=== PATIENT | female | born 1990 | race Caucasian/White ===

== ENCOUNTER 2017-05-14 11:46 | Emergency (ER) | payer MEDICAID ==
[~2017-05-14] VITALS: Ht 152.4 cm; Wt 56.7 kg
[2017-05-14] MEDS ORDERED: IBUPROFEN 600 MG TAB PO ONE ×2 (11:49→12:15)
[2017-05-14] MEDS ORDERED: ACETAMINOPHEN 500 MG TAB PO ONE (11:49)
[2017-05-14 11:59] VITALS: BP 127/83
[2017-05-14] MEDS ORDERED: ACETAMINOPHEN 325 MG TAB PO ONE (12:15)
[2017-05-14 13:05] LABS: Basophils # (auto) 0 uL; CONDITION Y; Eosinophils # (auto) 0.1 uL; Eosinophils % (auto) 0.6 % (0.0-7.0); Hematocrit 38.2 % (36.0-46.0); Lymphocytes # (auto) 1.3 uL; Lymphocytes % (auto) 9.6 % (10.0-50.0); Mean Corpuscular Hemoglobin 27.2 pg (28.0-32.0); Mean Platelet Volume 8.9 fL (7.4-10.4); Monocytes % (auto) 6.8 % (0.0-12.0); Neutrophils # (auto) 11.6 uL; Platelet Count (auto) 250 10^3/uL (140-450)
[2017-05-14 13:31] LABS: Albumin 3.3 g/dL (3.4-5.0); BUN/Creatinine Ratio 24.1; Bilirubin, Total 0.4 mg/dL (0.2-1.0); Calcium 8.4 mg/dL (8.5-10.1); Potassium 4.1 mmol/L (3.5-5.1); Total Protein 7.3 g/dL (6.4-8.2)
== END 2017-05-14 15:25 | disposition left against medical advice (07) ==
LOC: ER 11:46 → EDBD 11:46 → ER 15:25
DX: R50.9 Fever, unspecified (principal); Z53.21 Procedure and treatment not carried out due to patient leaving prior to being seen by health care provider
CPT/HCPCS: 36415; 80053; 85025

== ENCOUNTER 2022-10-28 12:13 | Emergency (ER) | payer MEDICAID ==
[~2022-10-28] VITALS: Ht 162.6 cm; Wt 63.0 kg
[2022-10-28 12:47] VITALS: BP 132/72
[2022-10-28 13:14] LABS: Urine Bacteria NONE SEEN /hpf (None Seen); Urine Blood Negative /uL (Negative); Urine Specific Gravity 1.025 (1.001-1.035); Urine WBC 1 /hpf (0 - 5)
[2022-10-28 13:16] LABS: Eosinophils # (auto) 0 10 ^3/uL (0-0.8); Hemoglobin 11.8 g/dL (12.2-16.2); Lymphocytes # (auto) 1.4 10 ^3/uL (0.4-5.4)
[2022-10-28 13:18] LABS: Basophils # (auto) 0 10 ^3/uL (0-0.2); Basophils % (auto) 0.7 % (0.0-2.0); Hematocrit 36.2 % (36.0-46.0); Lymphocytes % (auto) 28.8 % (10.0-50.0); Mean Corpuscular Hemoglobin 24.7 pg (28.0-32.0); Mean Corpuscular Hgb Conc. 32.5 g/dL (32.0-36.0); Mean Corpuscular Volume 76.1 fL (80.0-100.0); Monocytes # (auto) 0.4 10 ^3/uL (0-1.3); Monocytes % (auto) 7.2 % (0.0-12.0); Neutrophils % (auto) 62.3 % (37.0-80.0); Nucleated Red Blood Cells % 0.1 %; Red Blood Cells 4.76 10^6/uL (4.0-5.20); Red Cell Distribution Width 14.8 % (11.8-14.3); White Blood Cell 4.9 10^3/uL (4.4-10.8)
[2022-10-28 13:33] LABS: Albumin 3.4 g/dL (3.4-5.0); Anion Gap 4 (5-15); Blood Urea Nitrogen 23 mg/dL (7-18); Calcium 8.4 mg/dL (8.5-10.1); Carbon Dioxide 28 mmol/L (21-32); Chloride 106 mmol/L (98-107); Glucose 91 mg/dL (74-106); Sodium 138 mmol/L (136-145)
[2022-10-28 13:36] LABS: Alanine Aminotransferase 24 U/L (13-56); Aspartate Aminotransferase 17 U/L (15-37); BUN/Creatinine Ratio 35.9; Blood Alcohol < 3.0 mg/dL (0-5); GFR African American 140 mL/min; GFR Non-African American 116 mL/min
[2022-10-28 13:37] LABS: Acetaminophen < 2.0 ug/mL (10-30); Salicylate < 1.7 mg/dL (2.8-20.0)
[2022-10-28 13:38] LABS: Alkaline Phosphatase 81 U/L (45-117); Bilirubin, Total 0.2 mg/dL (0.2-1.0); Creatine Kinase IFCC 257 U/L (26-192); Total Protein 7.3 g/dL (6.4-8.2)
[2022-10-28 15:02] LABS: Alcohol, Urine < 3.0 mg/dL (0-10); Amphetamine Screen, Urine POSITIVE (NEGATIVE); Barbiturate Scree,Urine NEGATIVE (NEGATIVE); Benzodiazephine Screen, Urine NEGATIVE (NEGATIVE); Cocaine Screen, Urine NEGATIVE (NEGATIVE); Opiate Scree,Urine NEGATIVE (NEGATIVE); Phencyclidine Screen, Urine NEGATIVE (NEGATIVE)
[2022-10-28 15:13] LABS: Cannabinoid Screen, Urine NEGATIVE (NEGATIVE)
== END 2022-10-28 14:20 | disposition left against medical advice (07) ==
LOC: ER 12:13
DX: T40.411A Poisoning by fentanyl or fentanyl analogs, accidental (unintentional), initial encounter (principal); F15.10 Other stimulant abuse, uncomplicated; Z53.21 Procedure and treatment not carried out due to patient leaving prior to being seen by health care provider; Y92.89 Other specified places as the place of occurrence of the external cause
CPT/HCPCS: 36415; 80053; 80307; 80320; 80329; 81001; 81025; 82550; 85025; 93005

== ENCOUNTER 2024-04-13 17:03 | Inpatient (IN) | payer MEDICAID ==
[~2024-04-13] VITALS: Ht 152.4 cm; Wt 159.7 kg
[~2024-04-13 17:03] MED LIST: PREN-96 PO
[2024-04-13 19:07] LABS: Basophils # (auto) 0 10 ^3/uL (0-0.2); Basophils % (auto) 0.1 % (0.0-2.0); Eosinophils # (auto) 0 10 ^3/uL (0-0.8); Eosinophils % (auto) 0.1 % (0.0-7.0); Hematocrit 41.4 % (36.0-46.0); Lymphocytes # (auto) 1.2 10 ^3/uL (0.4-5.4); Lymphocytes % (auto) 11.9 % (10.0-50.0); Mean Corpuscular Hemoglobin 27.6 pg (28.0-32.0); Mean Corpuscular Hgb Conc. 33.8 g/dL (32.0-36.0); Mean Corpuscular Volume 81.5 fL (80.0-100.0); Monocytes % (auto) 10.5 % (0.0-12.0); Neutrophils # (auto) 7.6 10 ^3/uL (1.6-8.6); Neutrophils % (auto) 77.4 % (37.0-80.0); Nucleated Red Blood Cells % 0.1 %; Red Blood Cells 5.08 10^6/uL (4.0-5.20); Red Cell Distribution Width 14.8 % (11.8-14.3); White Blood Cell 9.8 10^3/uL (4.4-10.8)
[2024-04-13 19:27] LABS: Alanine Aminotransferase 81 U/L (7-40); Albumin 4.9 g/dL (3.2-4.8); Alkaline Phosphatase 93 U/L (46-116); Anion Gap 14 (5-15); Aspartate Aminotransferase 369 U/L (13-40); BUN/Creatinine Ratio 26.8 (10.0-20.0); Blood Urea Nitrogen 30 mg/dL (9-23); Calcium 8.9 mg/dL (8.7-10.4); Carbon Dioxide 20 mmol/L (20-30); Chloride 98 mmol/L (98-107); Glucose 94 mg/dL (74-106); Potassium 4.2 mmol/L (3.5-5.1); Sodium 132 mmol/L (136-145)
[2024-04-13 19:28] LABS: Bilirubin, Total 0.4 mg/dL (0.2-1.0); Total Protein 7.2 g/dL (5.7-8.2)
[2024-04-13 19:54] LABS: Platelet Estimate Decreased
[2024-04-13 19:55] LABS: Large Platelets FEW
[2024-04-14] VITALS (7 sets, daily range): BP systolic 103–112; BP diastolic 47–76; PULSE 61–83; RESP 14–22; TEMP 98–99.4; O2SAT 94–97
[2024-04-14] MEDS ORDERED: TEMAZEPAM 15 MG CAP PO PRN
[2024-04-14] MEDS ORDERED: ONDANSETRON HCL 4 MG/2 ML VIAL IV PRN
[2024-04-14] MEDS: ACETAMINOPHEN 325 MG TAB PO PRN (04:52)
[2024-04-14 06:49] LABS: Basophils # (auto) 0 10 ^3/uL (0-0.2); Basophils % (auto) 0.4 % (0.0-2.0); Eosinophils # (auto) 0.1 10 ^3/uL (0-0.8); Eosinophils % (auto) 1.1 % (0.0-7.0); Hematocrit 40.4 % (36.0-46.0); Hemoglobin 14.1 g/dL (12.2-16.2); Lymphocytes # (auto) 1.7 10 ^3/uL (0.4-5.4); Lymphocytes % (auto) 22.1 % (10.0-50.0); Mean Corpuscular Hemoglobin 28.2 pg (28.0-32.0); Mean Corpuscular Hgb Conc. 34.8 g/dL (32.0-36.0); Mean Corpuscular Volume 80.9 fL (80.0-100.0); Monocytes # (auto) 0.8 10 ^3/uL (0-1.3); Monocytes % (auto) 10.5 % (0.0-12.0); Neutrophils # (auto) 5.1 10 ^3/uL (1.6-8.6); Neutrophils % (auto) 65.9 % (37.0-80.0); Red Blood Cells 4.99 10^6/uL (4.0-5.20); Red Cell Distribution Width 14.5 % (11.8-14.3); White Blood Cell 7.8 10^3/uL (4.4-10.8)
[2024-04-14 06:52] LABS: Alanine Aminotransferase 133 U/L (7-40); Alkaline Phosphatase 88 U/L (46-116); Anion Gap 12 (5-15); BUN/Creatinine Ratio 18.8 (10.0-20.0); Blood Urea Nitrogen 18 mg/dL (9-23); Calcium 9.2 mg/dL (8.7-10.4); Carbon Dioxide 24 mmol/L (20-30); Chloride 100 mmol/L (98-107); Glucose 129 mg/dL (74-106); Potassium 3.7 mmol/L (3.5-5.1); Sodium 136 mmol/L (136-145)
[2024-04-14 06:53] LABS: Albumin 4.5 g/dL (3.2-4.8); Aspartate Aminotransferase 561 U/L (13-40); Bilirubin, Total 0.4 mg/dL (0.2-1.0); Total Protein 6.9 g/dL (5.7-8.2)
[2024-04-14 08:50] LABS: Hepatitis B Surface Antigen Negative (Negative)
[2024-04-14 09:11] LABS: Hepatitis B Core IgM Negative
[2024-04-14 09:12] LABS: Hepatitis C Antibody Negative (Negative)
[2024-04-15] VITALS (7 sets, daily range): BP systolic 102–116; BP diastolic 42–62; PULSE 54–65; RESP 12–22; TEMP 97.6–98.4; O2SAT 96–98
[2024-04-15 00:12] LABS: Urine Bacteria FEW /hpf (None Seen); Urine Blood Negative /uL (Negative); Urine Clarity Ex.Turbid (Clear); Urine Color Colorless (Yellow); Urine Protein, UAD TRACE (Negative); Urine Specific Gravity 1.023 (1.001-1.035); Urine Urobilinogen Normal (Negative); Urine WBC 16 /hpf (0 - 5); Urine pH 6.5 (5.0-9.0)
[2024-04-15 00:23] LABS: Amphetamine Screen, Urine Pos (NEGATIVE); Barbiturate Scree,Urine Neg (NEGATIVE); Benzodiazephine Screen, Urine Neg (NEGATIVE); Cocaine Screen, Urine Neg (NEGATIVE)
[2024-04-15 00:24] LABS: Cannabinoid Screen, Urine Neg (NEGATIVE); Opiate Scree,Urine Neg (NEGATIVE); Phencyclidine Screen, Urine Neg (NEGATIVE)
[2024-04-15] MEDS: PENICILLIN G BENZ 1,200,000 UNITS/2 ML SYRG IM ONE (11:08)
[2024-04-16 05:00] VITALS: BP 102/52; PULSE 65; RESP 18; TEMP 97.8; O2SAT 98
[2024-04-16 09:18] VITALS: BP 100/65; PULSE 72; RESP 18; TEMP 98.3; O2SAT 95
[2024-04-16 12:20] VITALS: BP 109/62; PULSE 84; RESP 20; TEMP 98.1; O2SAT 100
[2024-04-16 16:00] VITALS: BP 109/67; PULSE 64; RESP 20; TEMP 98.4; O2SAT 100
[2024-04-16 22:00] VITALS: BP 113/61; PULSE 63; RESP 18; TEMP 98.2; O2SAT 97
[2024-04-17] VITALS (8 sets, daily range): BP systolic 106–149; BP diastolic 50–86; PULSE 54–81; RESP 16–20; TEMP 97.7–98.7; O2SAT 95–99
[2024-04-17] MEDS: LORazepam 0.5 MG TAB PO PRN (12:26)
== END 2024-04-17 15:15 | disposition home or self-care (01) | DRG 724 ==
LOC: ER 17:03 → OVERFLOW 23:51 → CENTRAL 23:51 → WEST WING 04-17 05:37
PROVIDERS: ADMIT Nurse Practitioner; ATTEND Internal Medicine
DX: A53.9 Syphilis, unspecified (principal); N17.9 Acute kidney failure, unspecified; R74.01 Elevation of levels of liver transaminase levels; M79.2 Neuralgia and neuritis, unspecified
CPT/HCPCS: 36415; 70450; 70551; 72131; 80053; 80074; 80307; 81001; 84702; 85025; 86592; 93005; G0378; J0561